=== PATIENT | female | born 1995 | race Caucasian/White ===

== ENCOUNTER 2019-02-22 15:56 | Emergency (ER) | payer OTHER ==
[2019-02-22 16:02] VITALS: BP 114/78; PULSE 102; TEMP 97.9; BMI 29.9
--- NOTE | 2019-02-22 16:25 | PDOC ---
History of Present Illness - General Chief Complaint: Sore Throat Stated Complaint: TONSILS Time Seen by Provider: 02/22/19 16:16 - History of Present Illness Initial Comments: 02/22/19 16:23 23-year-old female without comorbidities presents for evaluation of sore throat x7 days. Waxing and waning without systemic symptoms Past History - Past Medical History Allergies/Adverse Reactions: Allergies Allergy/AdvReac Type Severity Reaction Status Date / Time No Known Allergies Allergy Verified 02/22/19 16:02 COPD: No - Psycho Social/Smoking Cessation Hx Smoking History: Never smoked Information on smoking cessation initiated: No Hx Alcohol Use: No Drug/Substance Use Hx: No Review of Systems - Review of Systems Constitutional: No: Fever HEENTM: Yes: Throat Pain *Physical Exam - Vital Signs Last Vital Signs Temp Pulse Resp BP Pulse Ox 97.9 F 102 H 17 114/78 97 02/22/19 16:00 02/22/19 16:00 02/22/19 16:00 02/22/19 16:00 02/22/19 16:00 - Physical Exam Comments: 02/22/19 16:24 GENERAL: The patient is awake, alert, and fully oriented, in no acute distress. HEAD: Normal with no signs of trauma. EYES: sclera anicteric, conjunctiva clear. ENT: Ears normal; swollen tonsils mild erythema no exudate uvula midline NECK: Normal range of motion LUNGS: Breath sounds equal, clear to auscultation bilaterally. No wheezes, and no crackles. HEART: S1 and S2 without murmur, rub or gallop. ABDOMEN: Soft, nontender, normoactive bowel sounds. No guarding, no rebound. No masses. EXTREMITIES: Normal range of motion, no edema. No clubbing or cyanosis. No cords, erythema, or tenderness. NEUROLOGICAL: Cranial nerves II through XII grossly intact. Normal speech, normal gait. PSYCH: Normal mood, normal affect. SKIN: Warm, Dry, normal turgor, no rashes or lesions noted. Medical Decision Making - Medical Decision Making 02/22/19 16:24 Expect rapid strep to be negative also ordered a Monospot. This is most likely viral pharyngitis. Discharge - Discharge Information Problems reviewed: Yes Clinical Impression/Diagnosis: Viral pharyngitis Condition: Stable Disposition: HOME - Admission No - Follow up/Referral Referrals: Keegan Robertson MD [Staff Physician] - - Patient Discharge Instructions Additional Instructions: Rapid strep was negative. This may be a viral pharyngitis of mononucleosis test was performed we will call you with those results. Return to the emergency room for worsening symptoms. Tylenol Motrin as directed for pain. Warm salt water gargles 5-6 times a day will help with your pain. Without fail please follow-up with internal medicine in 1 to 2 days for further evaluation and treatment options. - Post Discharge Activity
== END 2019-02-22 17:57 | disposition home or self-care (01) ==
LOC: JERFT 15:56
DX: J02.9 Acute pharyngitis, unspecified (principal); B97.89 Other viral agents as the cause of diseases classified elsewhere
CPT/HCPCS: 36415; 86308; 87070; 87880; 99282-25

== ENCOUNTER 2021-01-26 09:45 | Emergency (ER) | payer OTHER ==
[2021-01-26 09:53] VITALS: BMI 32.9
[2021-01-26] MEDS ORDERED: ACETAMINOPHEN 325 MG TABLET (FP) PO ONE (10:48)
[2021-01-26] MEDS ORDERED: ACETAMINOPHEN 325 MG TABLET (FP) ONE (11:11)
[2021-01-26 12:21] VITALS: BP 106/60; PULSE 101; TEMP 97.9
== END 2021-01-26 14:00 | disposition home or self-care (01) ==
LOC: JER 09:45
DX: S92.254A Nondisplaced fracture of navicular [scaphoid] of right foot, initial encounter for closed fracture (principal); X50.9XXA Other and unspecified overexertion or strenuous movements or postures, initial encounter
CPT/HCPCS: 73610-TC-LT-FY; 99283-25

== ENCOUNTER 2021-04-13 21:18 | Inpatient (IN) | payer OTHER ==
[2021-04-13] MEDS: DEXTROSE 5%-LACTATED RINGERS 1,000 ML IV SCH (22:00)
[2021-04-13] MEDS ORDERED: DINOPROSTONE 10 MG VAGINAL SUPPOSITORY VG ONE (22:45)
[2021-04-13 22:56] VITALS: BMI 33.3
[2021-04-14] MEDS: DEXTROSE 5%-LACTATED RINGERS 1,000 ML IV SCH (01:30)
[2021-04-14] MEDS ORDERED: OXYTOCIN 30 UNITS in 0.9% NS 30 UNIT/500 ML INFUS.BAG IVPB SCH (05:40)
[2021-04-14] MEDS ORDERED: PROMETHAZINE HCL 25 MG/1 ML VIAL IVPB ONE (05:40)
[2021-04-14] MEDS ORDERED: BUTORPHANOL TARTRATE 1 MG/ML VIAL IVPB ONE (05:40)
[2021-04-14] MEDS ORDERED: PROMETHAZINE HCL 25 MG/1 ML VIAL ONE (05:48)
[2021-04-14] MEDS ORDERED: BUTORPHANOL TARTRATE 1 MG/ML VIAL ONE (05:48)
[2021-04-14] MEDS ORDERED: OXYTOCIN 30 UNITS in 0.9% NS 30 UNIT/500 ML INFUS.BAG IVPB ONE (05:48)
[2021-04-14 09:37] LABS: POC NITRAZINE NEG
[2021-04-14] MEDS ORDERED: FENTANYL/BUPIVACAINE/NS/PF - PCEA - 50 ML DISP.SYRIN EP ONE ×3 (09:53→16:35)
[2021-04-14] MEDS ORDERED: NALOXONE HCL 0.4 MG/ML VIAL IVPUSH PRN (13:49)
[2021-04-14] MEDS ORDERED: FENTANYL/BUPIVACAINE/NS/PF - PCEA - 50 ML DISP.SYRIN EP SCH (14:00)
[2021-04-14] MEDS ORDERED: OXYTOCIN 20 UNITS in 0.9% NS 20 UNIT/1,000 ML INFUS.BAG IV ONE (16:21)
[2021-04-14] MEDS ORDERED: PCA PUMP NR ONE (16:36)
[2021-04-14] MEDS ORDERED: ACETAMINOPHEN 325 MG TABLET (FP) ONE (19:16)
[2021-04-14] MEDS ORDERED: IBUPROFEN 600 MG TABLET (FP) PO ONE ×2 (19:16→19:20)
[2021-04-14] MEDS ORDERED: ACETAMINOPHEN 325 MG TABLET (FP) PO ONE (19:20)
[2021-04-14] MEDS ORDERED: BENZOCAINE 28 GM HEMORRHOIDAL OINTMENT TP PRN (19:25)
[2021-04-14] MEDS ORDERED: BISACODYL 10 MG SUPP.RECT RC PRN (19:25)
[2021-04-14] MEDS ORDERED: METHYLERGONOVINE MALEATE 0.2 MG/1 ML AMP IM PRN (19:25)
[2021-04-14] MEDS ORDERED: WITCH HAZEL 50% (TUCKS) 40 PAD/JAR PAD TP PRN (19:25)
[2021-04-14] MEDS ORDERED: BENZOCAINE 20% 57 GM BOTTLE TP PRN (19:25)
[2021-04-14] MEDS ORDERED: ACETAMINOPHEN 325 MG TABLET (FP) PO PRN (19:25)
[2021-04-14] MEDS ORDERED: OXYTOCIN 20 UNITS in 0.9% NS 20 UNIT/1,000 ML INFUS.BAG IV SCH (19:30)
[2021-04-14] MEDS: IBUPROFEN 600 MG TABLET (FP) PO PRN (23:18)
[2021-04-15] MEDS: oxyCODONE HCL 5 MG TABLET PO PRN ×2 (01:46→08:34)
[2021-04-15 08:56] LABS: BASO % 0.2 % (0-2.0); EOS % 0.1 % (0-4.5); HEMATOCRIT 23.9 % (32.4-45.2); HEMOGLOBIN 7.5 GM/dL (10.7-15.3); LYMPH % 17.6 % (8-40); MCH 26.1 pg (25.7-33.7); MCHC 31.6 g/dl (32.0-36.0); MEAN CELL VOLUME 82.6 fl (80-96); MONO % 5.7 % (3.8-10.2); NEUT % 76.4 % (42.8-82.8); PLATELET COUNT 286 10^3/uL (134-434); RBC 2.89 M/mm3 (3.60-5.2); RDW 13.8 % (11.6-15.6); WHITE BLOOD COUNT 17.2 K/mm3 (4.0-10.0)
[2021-04-15] MEDS: IBUPROFEN 600 MG TABLET (FP) PO PRN ×2 (13:09→18:05)
[2021-04-15 15:00] VITALS: TEMP 98.2
[2021-04-15] MEDS ORDERED: SENNOSIDES/DOCUSATE COMBO (SENNA PLUS) TABLET (UD) PO PRN (22:00)
[2021-04-16 19:33] VITALS: BP 110/68; PULSE 80
== END 2021-04-16 16:50 | disposition home or self-care (01) | DRG 560 ==
LOC: JLDR 21:18 → J3W 04-14 20:43
PROVIDERS: ADMIT Specialist; ATTEND Specialist
PROC: 10E0XZZ Delivery of Products of Conception, External Approach (ICD-10-PCS; principal; 2021-04-14)
PROC: 0W8NXZZ Division of Female Perineum, External Approach (ICD-10-PCS; 2021-04-14)
PROC: 3E0P7VZ Introduction of Hormone into Female Reproductive, Via Natural or Artificial Opening (ICD-10-PCS; 2021-04-14)
DX: O66.0 Obstructed labor due to shoulder dystocia (principal); Z3A.39 39 weeks gestation of pregnancy; Z37.0 Single live birth
CPT/HCPCS: 36415; 59409; 80048; 83986-QW; 85025; 85610; 85730; 86780; 86850; 86900; 86901; 97116-GP; 97161-GP; C9803; U0003; U0005